=== PATIENT | female | born 1970 | race Hispanic/Latino ===

== ENCOUNTER 2021-09-06 19:29 | Emergency (ER) | payer MEDICARE ==
[~2021-09-06] VITALS: Ht 152.4 cm; Wt 73.5 kg
[2021-09-06] MEDS ORDERED: ACETAMINOPHEN 325 MG TAB PO ONE (20:15)
[2021-09-06 20:22] LABS: BASOPHILS # (AUTO) 0.1 (0.0-0.1); BASOPHILS % 0.5 % (0.0-1.0); EOSINOPHILS # (AUTO) 0.2 (0.0-0.4); EOSINOPHILS % 2.1 % (0.0-6.0); HEMATOCRIT 36.1 % (34.2-44.1); HEMOGLOBIN 11.3 g/dL (12.0-16.0); LYMPHOCYTES # (AUTO) 3.9 (1.0-3.2); LYMPHOCYTES % 37.7 % (18.0-39.1); MEAN CORPUSCULAR HEMOGLOBIN 25.9 pg (28-32); MEAN CORPUSCULAR HGB CONC 31.3 g/dL (31-35); MEAN CORPUSCULAR VOLUME 82.8 fL (81-99); MONOCYTES # (AUTO) 0.7 (0.2-0.8); MONOCYTES % 6.9 % (4.4-11.3); NEUTROPHILS # (AUTO) 5.4 (2.1-6.9); NEUTROPHILS % 52.6 % (38.7-80.0); PLATELET COUNT 320 x10e3/uL (140-360); RED BLOOD COUNT 4.36 x10e6/uL (3.6-5.1); RED CELL DISTRIBUTION WIDTH 15.7 % (11.7-14.4)
[2021-09-06] MEDS ORDERED: ACETAMINOPHEN 325 MG TAB ONE (20:29)
[2021-09-06 20:49] LABS: ALANINE AMINOTRANSFERASE 43 IU/L (0-55); ALBUMIN 3.6 g/dL (3.5-5.0); ALKALINE PHOSPHATASE 124 IU/L (40-150); BLOOD UREA NITROGEN 10 mg/dL (7-26); BUN/CREATININE RATIO 11 (6-25); CALCIUM 9.6 mg/dL (8.4-10.2); CARBON DIOXIDE 22 mmol/L (22-29); CHLORIDE 105 mmol/L (98-107); CREATININE, SERUM 0.88 mg/dL (0.57-1.11); EST GLOMERULAR FILTRATION RATE 67 ML/MIN (60-); GLUCOSE 312 mg/dL (74-118); SODIUM 138 mmol/L (136-145)
[2021-09-06 21:31] VITALS: BP 164/86
== END 2021-09-06 21:33 | disposition home or self-care (01) ==
LOC: ER 20:13
DX: R51.9 Headache, unspecified (principal); E11.9 Type 2 diabetes mellitus without complications
CPT/HCPCS: 36415; 70450; 80053; 85025; 93005; 99284

== ENCOUNTER 2024-06-22 09:45 | Emergency (ER) | payer MEDICARE ==
[~2024-06-22] VITALS: Ht 152.4 cm; Wt 73.5 kg
[~2024-06-22 09:45] MED LIST: ELIMITE60 GM TOP; FLUCONAZOLE100 MG PO
[2024-06-22] MEDS ORDERED: GLIMEPIRIDE2 MG PO (10:24)
[2024-06-22] MEDS ORDERED: XIGDUO XR 5 MG1 EAC1 (10:24)
[2024-06-22] MEDS ORDERED: DOXYCYCLINE HY100 MG PO (10:35)
[2024-06-22] MEDS ORDERED: PROBIOTIC & AC1 EACH PO (10:35)
[2024-06-22] MEDS ORDERED: IBUPROFEN200 MG PO (10:35)
[2024-06-22] MEDS ORDERED: BACTRIM 400-801 EACH PO (10:35)
[2024-06-22] MEDS: LIDOCAINE HCL 2% LOCAL 20 ML VIAL INJ STA (10:44)
[2024-06-22] MEDS: IBUPROFEN 600 MG TAB PO ONE (10:45)
[2024-06-22] MEDS: CEFTRIAXONE 1 GM VIAL IM ONE (10:45)
[2024-06-22] MEDS ORDERED: Clindamycin INJ 150 MG/ML 600 MG Vial IM ONE (10:45)
[2024-06-22 11:23] VITALS: PULSE 69; RESP 14; TEMP 98.2; O2SAT 100
== END 2024-06-22 11:23 | disposition home or self-care (01) ==
LOC: FSED 09:48
DX: L02.214 Cutaneous abscess of groin (principal); E11.65 Type 2 diabetes mellitus with hyperglycemia; M54.9 Dorsalgia, unspecified; G89.29 Other chronic pain
CPT/HCPCS: 10061; 96372; 99283; J0696; J2001

== ENCOUNTER 2024-11-23 16:28 | Emergency (ER) | payer MEDICARE ==
[~2024-11-23] VITALS: Ht 154.9 cm; Wt 72.8 kg
[~2024-11-23 16:28] MED LIST changes: +BACTRIM 400-801 EACH PO; +DOXYCYCLINE HY100 MG PO; +GLIMEPIRIDE2 MG PO; +IBUPROFEN200 MG PO; +PROBIOTIC & AC1 EACH PO; +XIGDUO XR 5 MG1 EAC1
[2024-11-23] MEDS: KETOROLAC TROMETHAMINE 30 MG/ML VIAL IV STA (17:35)
[2024-11-23] MEDS: SODIUM CHLORIDE 0.9% 500ML 500 ML IV ONE (17:35)
[2024-11-23] MEDS: METOCLOPRAMIDE HCL 10 MG/2ML VIAL IV ONE (17:35)
[2024-11-23] MEDS: DIPHENHYDRAMINE HCL INJ 50 MG/ML VIAL IV ONE (17:36)
[2024-11-23] MEDS: ACETAMINOPHEN 325 MG TAB PO ONE (18:07)
[2024-11-23] MEDS: CYCLOBENZAPRINE HCL 10 MG TAB PO ONE (18:07)
[2024-11-23 18:27] VITALS: PULSE 76; RESP 14; TEMP 97.6; O2SAT 98
[2024-11-23] MEDS ORDERED: KETOROLAC TROME10 MG PO (18:31)
[2024-11-23] MEDS ORDERED: CYCLOBENZAPRINE5 MG PO (18:32)
== END 2024-11-23 18:44 | disposition home or self-care (01) ==
LOC: FSED 16:32
DX: R51.9 Headache, unspecified (principal); M62.838 Other muscle spasm; E11.65 Type 2 diabetes mellitus with hyperglycemia; M54.9 Dorsalgia, unspecified; G89.29 Other chronic pain
CPT/HCPCS: 70450; 80048; 85025; 96374; 96375; 99284; J1885; J2765; J7040

== ENCOUNTER 2024-12-06 22:49 | Emergency (ER) | payer MEDICARE ==
[~2024-12-06] VITALS: Ht 154.9 cm; Wt 72.1 kg
[~2024-12-06 22:49] MED LIST changes: +CYCLOBENZAPRINE5 MG PO; +KETOROLAC TROME10 MG PO
[2024-12-06 22:55] VITALS: PULSE 109; RESP 18; TEMP 98.4
[2024-12-06] MEDS: KETOROLAC TROMETHAMINE 60 MG/2 ML VIAL IM ONE (23:17)
[2024-12-06] MEDS: LIDOCAINE HCL 2% LOCAL 20 ML VIAL INJ ONE (23:43)
[2024-12-07 01:05] VITALS: BP 135/74; PULSE 89; RESP 18; TEMP 98.4; O2SAT 97
== END 2024-12-07 01:06 | disposition home or self-care (01) ==
LOC: FSED 22:57
DX: S91.202A Unspecified open wound of left great toe with damage to nail, initial encounter (principal); X50.9XXA Other and unspecified overexertion or strenuous movements or postures, initial encounter; Y93.01 Activity, walking, marching and hiking; Y92.89 Other specified places as the place of occurrence of the external cause; E11.9 Type 2 diabetes mellitus without complications; M54.9 Dorsalgia, unspecified; G89.29 Other chronic pain
CPT/HCPCS: 73660; 99283; J1885; J2003